=== PATIENT | male | born 1970 | race Caucasian/White ===

== ENCOUNTER 2016-11-17 10:41 | Emergency (ER) | payer MEDICAID, OTHER ==
[~2016-11-17] VITALS: Ht 167.6 cm; Wt 71.8 kg
[2016-11-17 10:44] VITALS: Ht 167.6 cm; Wt 71.8 kg
--- NOTE | 2016-11-17 12:36 | ERD ---
ER Documentation Chief Complaint Date/Time DATE: 11/17/16 TIME: 12:33 Chief Complaint pt bib self for suture removal to left hand HPI This is a 46-year-old male that presents to the ER for suture removal of his left hand. Patient states he got sutures in last at another facility. Patient denies any redness, pain, discharge from the laceration site. Patient denies any fevers or chills. He denies any numbness or tingling of his hands. ROS 12 point review of systems was done, all negative except per HPI. Allergies Allergies: Coded Allergies: No Known Allergy (Unverified , 11/17/16) PMhx/Soc Medical and Surgical Hx: pt denies Medical Hx, pt denies Surgical Hx History of Surgery: No Anesthesia Reaction: No Hx Neurological Disorder: No Hx Respiratory Disorders: No Hx Cardiac Disorders: No Hx Psychiatric Problems: No Hx Miscellaneous Medical Probl: No Hx Alcohol Use: No Hx Substance Use: No Hx Tobacco Use: No Smoking Status: Never smoker Physical Exam Vitals Vital Signs Date Time Temp Pulse Resp B/P Pulse Ox O2 Delivery O2 Flow Rate FiO2 11/17/16 10:44 98.3 66 16 131/75 100 Physical Exam GENERAL: The patient is well developed and appropriate for usual state of health , in no apparent distress. HEENT: Atraumatic. CHEST: Clear to auscultation bilaterally. There are no rales, wheezes or rhonchi. HEART: Regular rate and rhythm. No murmurs, clicks, rubs or gallops. EXTREMITIES: Left hand: Patient has a linear laceration in between the first and second webspace about 4 cm in length. 2 simple interrupted sutures are in place without erythema edema, discharge or wound dehiscence. NEURO: Alert and oriented. SKIN: The skin is warm and dry. Procedures/MDM This is a 46-year-old male presents today after suture removal. Sutures were removed by myself without any complications. There is no evidence of infection at this time. Patient is to follow-up with his primary care doctor within 1-2 days or return to ER sooner if symptoms worsen. Medical decision making shared with the patient he understands and agrees with plan. Departure Diagnosis: Primary Impression: Encounter for removal of sutures Condition: Stable Patient Instructions: Suture Removal, No Complication Additional Instructions: Call your primary care doctor TOMORROW for an appointment during the next 1-2 days.See the doctor sooner or return here if your condition worsens before your appointment time. QUINTIN HERNANDEZ Nov 17, 2016 12:36
== END 2016-11-17 12:11 | disposition home or self-care (01) ==
LOC: FTE 10:41
DX: Z48.02 Encounter for removal of sutures (principal)
CPT/HCPCS: 99281